=== PATIENT | female | born 1970 | race Caucasian/White ===

== ENCOUNTER 2018-08-12 10:23 | Emergency (ER) | payer OTHER ==
[~2018-08-12] VITALS: Ht 167.6 cm; Wt 120.5 kg
[~2018-08-12 10:23] MED LIST: ATEN-188; GABA800T; [UNRECOGNIZED DRUG - OTHER]
[2018-08-12] MEDS ORDERED: KETOROLAC TROMETHAMINE 30 MG/ML VIAL IM ONE (11:30)
[2018-08-12] MEDS ORDERED: MECLIZINE HCL 25 MG TABLET PO ONE (11:30)
[2018-08-12] MEDS ORDERED: ATENOLOL 50 MG TABLET PO ONE (11:45)
[2018-08-12 12:55] VITALS: BP 142/92
== END 2018-08-12 13:17 | disposition home or self-care (01) ==
LOC: EMS 10:25
DX: R42 Dizziness and giddiness (principal); J32.8 Other chronic sinusitis; H69.82 Other specified disorders of Eustachian tube, left ear; I10 Essential (primary) hypertension; E03.9 Hypothyroidism, unspecified
CPT/HCPCS: 70450; 96372; 99284; J1885